=== PATIENT | male | born 2000 | race Caucasian/White ===

== ENCOUNTER 2020-05-30 22:00 | Emergency (ER) | payer OTHER ==
[~2020-05-30] VITALS: Ht 175.3 cm; Wt 72.3 kg
[2020-05-30] MEDS ORDERED: EPINEPHRINE 1 MG/ML, 1ML SQ ONE (22:30)
[2020-05-30] MEDS ORDERED: FAMOTIDINE 20 MG TABLET PO ONE (22:30)
--- NOTE | 2020-05-30 22:30 | NUR ---
assumed care of pt. pt reports that he had a S/O of oral swelling and SOB INSTALLATION TECH after eating food at a [employer]. no known allergens. pt reports that he took benadryl INSTALLATION TECH and that swelling has resolved. no oral swelling noted. no dificulty breathing speaking or swallowing. SO at bedside.
[2020-05-30] MEDS ORDERED: FAMOTIDINE 20 MG TABLET ONE (22:46)
[2020-05-30] MEDS ORDERED: OMEPRAZOLE 20 MG CAPSULE.DR ONE (22:46)
[2020-05-30] MEDS ORDERED: EPINEPHRINE 1 MG/ML, 1ML ONE (22:48)
--- NOTE | 2020-05-30 23:05 | NUR ---
pt has been medicated per order. well tolerated. pt reports that he feels much better. no swelling noted. no difficulty breathing speaking or swallowing. sitting up on gurney in position of comfort. no apparent distress. updated on POC
--- NOTE | 2020-05-30 23:24 | NUR ---
no changes. pt sitting up on gurney in no apparent distress. no swelling. no difficulty breathing speaking or swallowing.
--- NOTE | 2020-05-31 00:03 | NUR ---
no changes. pt sitting up in no apparent distress. chart up for MD recheck
--- NOTE | 2020-05-31 00:14 | NUR ---
awaiting MD hall. report to Sahra RAY for lunch
[2020-05-31 00:58] VITALS: BP 130/67
== END 2020-05-31 01:03 | disposition home or self-care (01) ==
LOC: ED 05-31 00:33
DX: T78.2XXA Anaphylactic shock, unspecified, initial encounter (principal); R06.02 Shortness of breath; R09.89 Other specified symptoms and signs involving the circulatory and respiratory systems; Y92.89 Other specified places as the place of occurrence of the external cause
CPT/HCPCS: 93005; 96372; 99283; J0171; J7512